=== PATIENT | male | born 1985 | race African-American/Black ===

== ENCOUNTER 2025-06-11 07:17 | Emergency (ER) | payer OTHER, SELFPAY ==
--- NOTE | ~2025-06-11 | CT_ITS ---
EXAMINATION: CT CHEST WITH IV CONTRAST, CT ABDOMEN PELVIS WITH IV CONTRAST INDICATION: Elevated lipase. Pneumonia? COMPARISON: There are no prior studies available for comparison.. TECHNIQUE: CT scan of the chest, abdomen and pelvis was performed following administration of 85 mL Omnipaque 350 using standard departmental protocol. Coronal and sagittal reformatted images were generated and reviewed. Oral contrast material was not administered at the request of the referring physician. This CT exam was performed with one or more of the following dose reduction techniques: automated exposure control, adjustment of the mA and/or kV according to patient size, use of iterative reconstruction technique. DLP: 815 mGy-cm CHEST: THYROID: The thyroid is unremarkable. LUNGS: There is mild dependent atelectasis bilaterally. There are no focal airspace opacities to suggest pneumonia. MEDIASTINUM: There is no mediastinal lymphadenopathy. FRANK: There is no hilar lymphadenopathy. CARDIOVASCULATURE: The heart is normal in size. There is no pericardial effusion. The thoracic aorta is normal in caliber. DEGREE OF CORONARY CALCIFICATION: not evaluable, due to dense contrast material in the coronary arteries. PLEURA: There is no pleural effusion. No pneumothorax. MAIN AIRWAYS: The mainstem bronchi and proximal branches are patent. AXILLA: There is no axillary lymphadenopathy. SOFT TISSUES: Unremarkable. BONES: The bones are intact. ABDOMEN: LIVER: The liver is normal in size and contour. There is a 1.4 cm probable cyst in the right lobe. There may be an additional subcentimeter cyst in the left lobe adjacent to the fissure for the ligamentum teres. The hepatic and portal veins are patent. GALLBLADDER / BILE DUCTS: The gallbladder is unremarkable. There is no intra or extrahepatic biliary ductal dilatation. SPLEEN: The spleen is normal in size. No focal splenic lesion is identified. PANCREAS: The pancreas is unremarkable in appearance. ADRENAL GLANDS: Within normal limits. KIDNEYS/RETROPERITONEUM: No renal calculi are identified. There is no hydronephrosis. No renal masses are identified. LYMPH NODES: No abdominal or pelvic lymphadenopathy. VASCULATURE: The abdominal aorta is normal in caliber. MESENTERY/PERITONEUM: No free fluid. No masses. There is no free intraperitoneal gas. STOMACH: The stomach is collapsed, limiting evaluation. SMALL BOWEL: The small bowel is normal in caliber. COLON: The colon is unremarkable. APPENDIX: Normal. URINARY BLADDER/PELVIC ORGANS: The urinary bladder is distended, but otherwise unremarkable. The prostate is normal in size. BONES / SOFT TISSUES: No suspicious bony or soft tissue abnormalities. CT/CT abdomen pelvis w IV con IMPRESSION: 1. There are no focal airspace opacities to suggest pneumonia. 2. Distended urinary bladder. Probable hepatic cysts as described. Otherwise unremarkable contrast-enhanced CT of the abdomen and pelvis. Electronically signed by: Dennis Tripathi MD 06/11/2025 12:49 PM EDT
[2025-06-11 07:35] VITALS: BP 128/79; PULSE 83; RESP 18; TEMP 36.3; O2SAT 99; BMI 26.5
--- NOTE | 2025-06-11 07:40 | ECG_ITS ---
Test Reason : sob Blood Pressure : */* mmHG Vent. Rate : 76 BPM Atrial Rate : 76 BPM P-R Int : 174 ms QRS Dur : 94 ms QT Int : 322 ms P-R-T Axes : 43 55 28 degrees QTcB Int : 362 ms Normal sinus rhythm Early Repolarization Otherwise normal ECG No previous ECGs available Referred By: Generic ED Physician Electronically Signed By: MIMA WALLACE
[2025-06-11 07:52] LABS: MANUAL DIFF FLAG NO
[2025-06-11 07:54] LABS: Hematocrit 44.7 % (42.0-52.0); Hemoglobin 15.0 g/dl (14.0-18.0); Imm Gran Abs Auto 0.01 X10*3/uL (0.00-0.03); Imm Gran Pct Auto 0.2 % (0.0-0.4); Lymphocytes Absolute Auto 2.0 X10*3/uL (1.2-4.9); Mean Corpuscular HGB Conc 33.6 g/dl (31.0-36.0); Mean Corpuscular Hemoglobin 27.3 pg (27.0-33.0); Mean Corpuscular Volume 81.3 fL (80.0-98.0); NRBC Abs Auto 0.000 X10*3/uL (0.0-0.012); NRBC Pct Auto 0.0 /100WBC (0.0-0.2); Platelet Count 217 X10*3/uL (160-400); Red Blood Count 5.50 X10*6/uL (4.60-5.80); White Blood Count 4.6 X10*3/uL (4.8-10.8)
--- OUTSIDE RECORDS SUMMARY | 2025-06-11 08:01 | XMS_ITS | Clinical Summary ---
Author Organization [employer] Address [address] [place] [address] Care Team Providers Care Grounds Person Name Role Phone Unavailable Primary Care Provider Unavailabl e Encounters Date Type Department Care Team Description 03/11/2025 Telephone [facility] [address] [place] [address] Sunny Rodriguez MD from Last 3 Months Social History Tobacco Use Types Packs/Day Years Used Date Smoking Tobacco: Never Assessed Sex and Gender Information Value Date Recorded Sex Assigned at Male 02/12/2025 9:39 AM EDT Legal Sex Male 1:25 PM EDT Gender Identity Male 02/12/2025 9:39 AM EDT Sexual Orientation Straight 02/12/2025 9: 39 AM EDT Plan of Treatment Health Maintenance Due Date Last Done Comments Depression Screening 1985 HIV Screening 1985 Lipid Panel 1985 SDOH Screening 1985 Disability Screening 1985 Alcohol/Substance Use Screening 1995 Tobacco Screening 1995 Family Planning (PISQ) 12/25/1998 HPV Vaccines (1 - Male 3-dos e series) 12/25/1998 Hepatitis C Screening 12/25/2001 DTaP/Tdap/Td Vaccines (1 - Tdap) 12/25/2002 Hepatitis B Vaccines (1 of 3 - 19+ 3-dose series) 12/25/2002 COVID-19 Vaccine (1 - 2023-2 5 season) 2025 Influenza Vaccine (#1) 2025 Zoster Vaccines (1 of 2) 12/25/2033 RSV Patients and Pa tients Aged 60 years or older (1 - 1-dose 75+ series) 12/25/2058 HIB Vaccines Aged Out No longer eligi ble based on patient's age to complete this topic Hepatitis A Vaccines Aged Out No long er eligible based on patient's age to complete this topic IPV Vaccines Aged Out No longer eligi ble based on patient's age to complete this topic Meningococcal B Vaccine Aged Out No l onger eligible based on patient's age to complete this topic Meningococcal Vaccine Aged Out No naresh mildred eligible based on patient's age to complete this topic Pneumococcal Vaccine: Pediat rics (0 to 5 Years) and At-Risk Patients (6 to 49) Years Aged Out No longer eligible b ased on patient's age to complete this topic RSV under 20 months Aged Out No longe r eligible based on patient's age to complete this topic Rotavirus Vaccines Aged Out No longer eligible based on patient's age to complete this topic Insurance [facility]
[2025-06-11 08:11] LABS: Alanine Aminotransferase 18 U/L (0-40); Albumin Level 4.5 g/dL (3.5-5.0); Alkaline Phosphatase 85 U/L (39-117); Anion Gap 12 (12-20); Aspartate Amino Transferase 22 U/L (5-37); Blood Urea Nitrogen 13 mg/dL (9-16); Calcium 9.6 mg/dL (8.4-10.2); Carbon Dioxide 23 mmol/L (22-29); Chloride 106 mmol/L (96-108); Creatinine Clr Calc Pharmacy 92.3; Estimated Glomerular Filt Rate > 60; Lipase 133 U/L (8-78); Potassium 4.7 mmol/L (3.3-5.1); Sodium 136 mmol/L (135-145); Total Protein 7.8 g/dL (6.5-8.0)
[2025-06-11 08:18] LABS: Troponin-I High Sensitivity < 2.7 ng/L (<3.5-35.0)
[2025-06-11 09:31] LABS: Hemoglobin A1C 411.7784 umol/L; Total Hemoglobin (HGBA1C) 3777.2434 umol/L
--- NOTE | 2025-06-11 09:41 | ED_ITS ---
HPI - Chest Pain General Chief Complaint: Chest Pain Stated Complaint: Abd pain Time Seen by Provider: 06/11/25 08:17 Source: patient Mode of arrival: ambulatory Limitations: no limitations History of Present Illness ED Provider: Corky Ugarte HPI narrative: 39 yold male presents to the ED for increase thirst, polyuria, chest pain and abdominal pain. Patient dnies any chest pain, diarrhea, fever, or chills. Related Data Previous Rx's ?Medication ?Instructions ?Recorded famotidine 40 mg tablet (Pepcid) 40 mg PO DAILY 30 day s #30 tabs 06/11/25 metformin 500 mg tablet 500 mg PO BID 30 days #60 ta bs 06/11/25 Allergies Allergy/AdvReac Type Severity Reaction Status Date / Time No Known Allergies Allergy Verified 06/11/25 07:38 Review of Systems 2 Review of Systems: polyuria and polydypsia, and Slight abdomnal pain Yes all other systems are reviewed and are negative Physical Exam 2 Vital Signs: Vital Signs: Last Vital Signs Temp 0 F L 06/11/25 13:33 Pulse 75 06/11/25 13:33 Resp 16 06/11/25 13:33 BP 114/82 06/11/25 13:33 Pulse Ox 96 06/11/25 13:33 O2 Del Method Room Air 06/11/25 13:33 BMI result Body Mass Index 26.5 Const: General: cooperative, healthy appearing, comfortable, no acute distress, well developed, alert and Physically active O rientation/consciousness: patient oriented x3 HEENT: Head: Yes normal to inspection, Yes No palpable skull fracture present, Yes normocephalic and Yes atraumatic Eyes: General: appearance normal, both eyes and all related structures Neck: Neck: Yes normal visual inspection, Yes full ROM, Yes no lymphadenopathy, Yes no meningeal signs, Yes trachea midline, Yes supple, No anterior neck swelling and No tender Chest: Chest palpation & inspection: normal inspection of the chest and normal palpation of entire chest wall Resp: Effort & Inspection: normal respiratory effort and able to speak in complete sentences Auscultation: clear to auscultation bilaterally Cardio: Jugular venous distension: no JVD Heart sounds: S1 normal heart sound present and S2 normal heart sound present GI: Inspection: Yes normal to inspection Palpation (GI): Soft to palpation, not firm, nontender, no guarding and not rigid : General: Yes no CVA tenderness Back/Spine/Pelvis: Back: no CVA tenderness and No back tenderness Skin: General skin exam: no rashes or lesions noted, elasticity normal and turgor normal Neuro: General: patient oriented x3, gait normal, tone normal, moves all extremities, Normal light touch and pain sensation, no meningeal signs, no focal motor deficits, CN's II-XI intact bilaterally and normal sensation to monofilament Extrem: General: Yes normal to inspection, Yes full ROM and Yes capillary refill normal Psych: Appearance: grossly normal, well kempt and not disheveled Medications Administered Discontinued Medications Generic Name Dose Route Start Last Admin Trade Name Freq PRN Reason Stop Dose Admin Famotidine 20 mg 06/11/25 10:30 06/11/25 11:08 Famotidine/Pf 20 Mg/2 Ml Vial IVPUSH 06/11/25 10:31 20 mg ONCE ONE Administration Sodium Chloride 1,000 mls @ 999 mls/hr 06/11/25 09:34 06/11/25 12:47 Ns IV 06/11/25 10:34 Infused .Q1H1M STA Infusion Sodium Chloride 1,000 mls @ 999 mls/hr 06/11/25 09:35 06/11/25 12:47 Ns IV 06/11/25 10:35 Infused .Q1H1M STA Infusion Iohexol 100 ml 06/11/25 11:54 06/11/25 11:54 Iohexol 350 Mg/Ml 100 Ml Infus..Btl IV 06/11/25 11:55 85 ml ONCE ONE Administration Medical Decision Making Medical Decision Making MDM Narrative: 39-year-old male presents to ED for polyuria polydipsia or abdominal pain. Patient to found to be hypoglycemic not in DKA possible new diabetic. No insulin needed fluids ordered. Abdomen benign 1:18pm: Upon re-questioning patient states he had some slight chest and abdominal pain earlier in the morning described as acid burning sensation. Patient was sent for chest CT and abdominal CT scan which showed nothing life- threatening or urgent. Patient informed of hepatic cyst. Patient will be discharged with metformin and informed to follow up with endocrinology. Patient explained worrisome signs and informed to return to the ED immediately. patient is not n DKA. Patient given diabetes meds. Patient to follow up with Endriconology. Differential Diagnosis Differential Diagnoses: The differential diagnosis associated with the presentation includes (DKA, [place], pancreatitis) Admission/Observation Consideration of admission/observation: Escalation of care including admission/observation considered Lab Data MDM Lab Attestation statement: I reviewed the patient's lab results. 06/11/25 07:49 06/11/25 07:49 Labs: Lab Results 06/11/25 06/11/25 Range/Units 07:49 09:50 WBC 4.6 L (4.8-10.8) X10*3/uL RBC 5.50 (4.60-5.80) X10*6/uL Hgb 15.0 (14.0-18.0) g/dl Hct 44.7 (42.0-52.0) % MCV 81.3 (80.0-98.0) fL MCH 27.3 (27.0-33.0) pg MCHC 33.6 (31.0-36.0) g/dl RDW 11.7 (11.0-16.0) % Plt Count 217 (160-400) X10*3/uL MPV 9.0 L (9.4-12.4) fL Immature Gran % (Auto) 0.2 (0.0-0.4) % Neut % (Auto) 45.6 (45-73) % Lymph % (Auto) 43.2 H (20-40) % [place] % (Auto) 10.4 (2-11) % Eos % (Auto) 0.2 (0-4) % Baso % (Auto) 0.4 (0-2) % Lymph # (Auto) 2.0 (1.2-4.9) X10*3/uL [place] # (Auto) 0.5 (0.1-1.2) X10*3/uL Eos # (Auto) 0.0 (0.0-0.4) X10*3/uL Baso # (Auto) 0.0 (0.0-0.2) X10*3/uL Abs Immat Gran (auto) 0.01 (0.00-0.03) X10*3/uL Absolute Neuts (auto) 2.1 (2.0-8.3) x10*3/uL Absolute Nucleated RBC 0.000 (0.0-0.012) X10*3/uL Nucleated RBC % (auto) 0.0 (0.0-0.2) /100WBC Sodium 136 (135-145) mmol/L Potassium 4.7 (3.3-5.1) mmol/L Chloride 106 (96-108) mmol/L Carbon Dioxide 23 (22-29) mmol/L Anion Gap 12 (12-20) BUN 13 (9-16) mg/dL Creatinine 0.95 (0.5-1.4) mg/dL Estim Creat Clear Calc 92.3 Estimated GFR > 60 Random Glucose 334 H (60-115) mg/dL Estimat Average Glucose 301 mg/dL Hemoglobin A1c % 12.1 H (<6.0) % Calcium 9.6 (8.4-10.2) mg/dL Total Bilirubin 0.5 (0.0-1.0) mg/dL AST 22 (5-37) U/L ALT 18 (0-40) U/L Alkaline Phosphatase 85 (39-117) U/L Troponin I High Sens < 2.7 < 2.7 (<3.5-35.0) ng/L Total Protein 7.8 (6.5-8.0) g/dL Albumin 4.5 (3.5-5.0) g/dL Lipase 133 H (8-78) U/L Beta-Hydroxybutyrate 0.11 (0.02-0.27) mmol/L Independent Interpretation I performed an independent interpretation of an: EKG (Negative STEMI) and CT Scan Radiology Impression Discussion of test interpretation with radiology: I have reviewed the radiologist's reading. Independent Historian Clinical information obtained from an independent historian. History obtained from or confirmed by: Other (Patient) Prescription Management I considered prescription management with: Other (Med for) Discharge Plan Discharge Clinical Impression: Diabetes, GERD (gastroesophageal reflux disease) Patient Disposition: Home, Self-Care Instructions: Type 2 Diabetes Management for Adults (ED) Additional Instructions: You will need follow-up with primary care provider and quality improvement coordinator (rn). Return to the ED immediately for any abdominal pain, chest pain, shortness of breath, weakness, fever, chills, or any other concerning symptoms. [address] [address] [address] Scan Report Signed Patient: Cari Moore MR#: [id number] : 1985 Acct:[id number] Age/Sex: 39 / M ADM Date: 06/11/25 Loc: HO.ED Attending Dr: Ordering Physician: Corky Ugarte Date of Service: 06/11/25 Procedure(s): CT chest w IV con Accession Number(s): [id number] cc: Corky Ugarte; Physician,None ~ Report Number: [id number]: Total DLP = 0.00 mGy-cm Reason for Exam: Pneumonia? EXAMINATION: CT CHEST WITH IV CONTRAST, CT ABDOMEN PELVIS WITH IV CONTRAST INDICATION: Elevated lipase. Pneumonia? COMPARISON: There are no prior studies available for comparison.. TECHNIQUE: CT scan of the chest, abdomen and pelvis was performed following administration of 85 mL Omnipaque 350 using standard departmental protocol. Coronal and sagittal reformatted images were generated and reviewed. Oral contrast material was not administered at the request of the referring physician. This CT exam was performed with one or more of the following dose reduction techniques: automated exposure control, adjustment of the mA and/or kV according to patient size, use of iterative reconstruction technique. DLP: 815 mGy-cm CHEST: THYROID: The thyroid is unremarkable. LUNGS: There is mild dependent atelectasis bilaterally. There are no focal airspace opacities to suggest pneumonia. MEDIASTINUM: There is no mediastinal lymphadenopathy. FRANK: There is no hilar lymphadenopathy. CARDIOVASCULATURE: The heart is normal in size. There is no pericardial effusion. The thoracic aorta is normal in caliber. DEGREE OF CORONARY CALCIFICATION: not evaluable, due to dense contrast material in the coronary arteries. PLEURA: There is no pleural effusion. No pneumothorax. MAIN AIRWAYS: The mainstem bronchi and proximal branches are patent. AXILLA: There is no axillary lymphadenopathy. SOFT TISSUES: Unremarkable. BONES: The bones are intact. ABDOMEN: LIVER: The liver is normal in size and contour. There is a 1.4 cm probable cyst in the right lobe. There may be an additional subcentimeter cyst in the left lobe adjacent to the fissure for the ligamentum teres. The hepatic and portal veins are patent. GALLBLADDER / BILE DUCTS: The gallbladder is unremarkable. There is no intra or extrahepatic biliary ductal dilatation. SPLEEN: The spleen is normal in size. No focal splenic lesion is identified. PANCREAS: The pancreas is unremarkable in appearance. ADRENAL GLANDS: Within normal limits. KIDNEYS/RETROPERITONEUM: No renal calculi are identified. There is no hydronephrosis. No renal masses are identified. LYMPH NODES: No abdominal or pelvic lymphadenopathy. VASCULATURE: The abdominal aorta is normal in caliber. MESENTERY/PERITONEUM: No free fluid. No masses. There is no free intraperitoneal gas. STOMACH: The stomach is collapsed, limiting evaluation. SMALL BOWEL: The small bowel is normal in caliber. COLON: The colon is unremarkable. APPENDIX: Normal. URINARY BLADDER/PELVIC ORGANS: The urinary bladder is distended, but otherwise unremarkable. The prostate is normal in size. BONES / SOFT TISSUES: No suspicious bony or soft tissue abnormalities. CT/CT chest w IV con IMPRESSION: 1. There are no focal airspace opacities to suggest pneumonia. 2. Distended urinary bladder. Probable hepatic cysts as described. Otherwise unremarkable contrast-enhanced CT of the abdomen and pelvis. Electronically signed by: Dennis Tripathi MD 06/11/2025 12:49 PM EDT RP Ordering Physician: Corky Ugarte Date of Service: 06/11/25 Procedure(s): CT abdomen pelvis w IV con Accession Number(s): [id number] cc: Corky Ugarte; Physician,None ~ Report Number: [id number]: Total DLP = 815.00 mGy-cm Reason for Exam: Epigastric pain. elevated lipase EXAMINATION: CT CHEST WITH IV CONTRAST, CT ABDOMEN PELVIS WITH IV CONTRAST INDICATION: Elevated lipase. Pneumonia? COMPARISON: There are no prior studies available for comparison.. TECHNIQUE: CT scan of the chest, abdomen and pelvis was performed following administration of 85 mL Omnipaque 350 using standard departmental protocol. Coronal and sagittal reformatted images were generated and reviewed. Oral contrast material was not administered at the request of the referring physician. This CT exam was performed with one or more of the following dose reduction techniques: automated exposure control, adjustment of the mA and/or kV according to patient size, use of iterative reconstruction technique. DLP: 815 mGy-cm CHEST: THYROID: The thyroid is unremarkable. LUNGS: There is mild dependent atelectasis bilaterally. There are no focal airspace opacities to suggest pneumonia. MEDIASTINUM: There is no mediastinal lymphadenopathy. FRANK: There is no hilar lymphadenopathy. CARDIOVASCULATURE: The heart is normal in size. There is no pericardial effusion. The thoracic aorta is normal in caliber. DEGREE OF CORONARY CALCIFICATION: not evaluable, due to dense contrast material in the coronary arteries. PLEURA: There is no pleural effusion. No pneumothorax. MAIN AIRWAYS: The mainstem bronchi and proximal branches are patent. AXILLA: There is no axillary lymphadenopathy. SOFT TISSUES: Unremarkable. BONES: The bones are intact. ABDOMEN: LIVER: The liver is normal in size and contour. There is a 1.4 cm probable cyst in the right lobe. There may be an additional subcentimeter cyst in the left lobe adjacent to the fissure for the ligamentum teres. The hepatic and portal veins are patent. GALLBLADDER / BILE DUCTS: The gallbladder is unremarkable. There is no intra or extrahepatic biliary ductal dilatation. SPLEEN: The spleen is normal in size. No focal splenic lesion is identified. PANCREAS: The pancreas is unremarkable in appearance. ADRENAL GLANDS: Within normal limits. KIDNEYS/RETROPERITONEUM: No renal calculi are identified. There is no hydronephrosis. No renal masses are identified. LYMPH NODES: No abdominal or pelvic lymphadenopathy. VASCULATURE: The abdominal aorta is normal in caliber. MESENTERY/PERITONEUM: No free fluid. No masses. There is no free intraperitoneal gas. STOMACH: The stomach is collapsed, limiting evaluation. SMALL BOWEL: The small bowel is normal in caliber. COLON: The colon is unremarkable. APPENDIX: Normal. URINARY BLADDER/PELVIC ORGANS: The urinary bladder is distended, but otherwise unremarkable. The prostate is normal in size. BONES / SOFT TISSUES: No suspicious bony or soft tissue abnormalities. CT/CT abdomen pelvis w IV con IMPRESSION: 1. There are no focal airspace opacities to suggest pneumonia. 2. Distended urinary bladder. Probable hepatic cysts as described. Otherwise unremarkable contrast-enhanced CT of the abdomen and pelvis. Prescriptions: New metformin 500 mg tablet 500 mg PO BID 30 Days Qty: 60 0RF famotidine [Pepcid] 40 mg tablet 40 mg PO DAILY 30 Days Qty: 30 0RF Referrals: [facility] [Provider Group, Gastroenterology] - 2 days Referral Note: GERD Clinical Impression: GERD (gastroesophageal reflux disease) [facility] Endocrinology [Provider Group, Diabetes Education] - 2 days Referral Note: Diabetes management Clinical Impression: Diabetes [facility] Primary Care, [place] [Provider Group, Internal Medicine] - 2 days Referral Note: Diabetes management Clinical Impression: Diabetes; GERD (gastroesophageal reflux disease) Stand Alone Forms: Work/School Release Interventions: ED Discharge Assessment Last Done: 06/11/25 13:33 Discharge Date/Time: 06/11/25 13:35 Print Language: Jazz Caldera
--- NOTE | 2025-06-11 09:55 | PC.NURSE ---
39 M presents to ED with abdominal pain, denies CP or SOB. c/o 5/10 pain. Pt is A+Ox4, calm, cooperative. RR even and unlabored. No visible s/s of distress. Pt found to have a high glucose level. Iv started and IV fluids running.
[2025-06-11 10:05] VITALS: BP 124/76; PULSE 96; RESP 18; TEMP 36.6; O2SAT 94
[2025-06-11 10:19] LABS: Troponin-I High Sensitivity < 2.7 ng/L (<3.5-35.0)
[2025-06-11] MEDS: iohexoL 350 MG/ML 100 ML INFUS..BTL IV (11:54)
[2025-06-11 13:33] VITALS: BP 114/82; PULSE 75; RESP 16; TEMP -17.7; TEMP 0; O2SAT 96
== END 2025-06-11 13:35 | disposition home or self-care (01) ==
PROVIDERS: Physician Assistant; Emergency Provider Emergency Medicine
DX: K21.9 Gastro-esophageal reflux disease without esophagitis (principal); E11.9 Type 2 diabetes mellitus without complications; R06.02 Shortness of breath; R10.9 Unspecified abdominal pain; R07.9 Chest pain, unspecified
CPT/HCPCS: 36415; 71260; 74177; 80053; 82010; 83036; 83690; 84484; 85025; 93005; 96361; 96374; 99285; J1308; Q9967

== ENCOUNTER → 2025-06-11 07:40 | Outpatient (BNV) | payer OTHER, SELFPAY | PROVIDERS: Emergency Provider Emergency Medicine; Visit Provider Internal Medicine | DX: R06.02 Shortness of breath (principal) | CPT/HCPCS: 93010 ==

== ENCOUNTER → 2025-06-11 10:33 | Outpatient (BNV) | payer OTHER, SELFPAY | PROVIDERS: Emergency Provider Emergency Medicine; Visit Provider Radiology Diagnostic Radiology | DX: R07.9 Chest pain, unspecified (principal); N32.89 Other specified disorders of bladder | CPT/HCPCS: 71260; 74177 ==